=== PATIENT | female | born 1980 | race Two or more races ===

== ENCOUNTER 2024-07-30 21:57 | Emergency (ER) | payer OTHER ==
[~2024-07-30] VITALS: Ht 170.2 cm; Wt 56.7 kg
[2024-07-31 00:09] LABS: BASOPHILS % (AUTO) 0.5 % (0.0-2.0); EOSINOPHILS % (AUTO) 0.7 % (0.0-6.0); HEMATOCRIT 32 % (33-45); HEMOGLOBIN 10.8 g/dL (11.5-14.8); LYMPHOCYTES # (AUTO) 1.7 K/uL (0.8-4.8); MEAN CORPUSCULAR HEMOGLOBIN 31 PG (26.0-33.0); MEAN CORPUSCULAR HGB CONC 34 g/dl (31.0-36.0); MEAN CORPUSCULAR VOLUME 91 fL (82-100); MONOCYTES # (AUTO) 0.5 K/uL (0.1-1.30); MONOCYTES % (AUTO) 8.1 % (2.0-12.0); NEUTROPHILS # (AUTO) 3.5 K/uL (1.8-8.9); NEUTROPHILS % (AUTO) 60.7 % (43.0-81.0); PLATELET COUNT (AUTO) 189 K/uL (150-450); RED BLOOD CELL COUNT(AUTO) 3.55 MIL/uL (4.0-5.2); RED CELL DISTRIBUTION WIDTH 12.2 % (11.5-15.0); WHITE BLOOD COUNT (AUTO) 5.8 K/uL (4.3-11.0)
[2024-07-31 00:26] LABS: BILIRUBIN,TOTAL 0.2 mg/dL (0.2-1.0); CALCIUM, SERUM 8.7 mg/dL (8.5-10.1); CREATININE 0.8 mg/dL (0.6-1.3); POTASSIUM 3.7 mmol/L (3.5-5.1); TOTAL PROTEIN, SERUM 6.9 g/dL (6.4-8.2)
[2024-07-31 01:04] VITALS: BP 126/80; TEMP 98.1; O2SAT 98
== END 2024-07-31 01:05 | disposition home or self-care (01) ==
LOC: ER 22:06
DX: R07.89 Other chest pain (principal); V43.52XA Car driver injured in collision with other type car in traffic accident, initial encounter; Y93.89 Activity, other specified; Y92.488 Other paved roadways as the place of occurrence of the external cause; Y99.8 Other external cause status
CPT/HCPCS: 36415; 71045-TC; 80053-TC; 84484-TC; 85025-TC

== ENCOUNTER 2025-06-24 18:12 | Emergency (ER) | payer OTHER ==
[~2025-06-24] VITALS: Ht 170.2 cm; Wt 57.6 kg
[2025-06-24 19:07] LABS: APPEARANCE,URINE CLEAR (CLEAR); BLOOD, URINE Trace-intact Ery/uL (NEGATIVE); LEUKOCYTE ESTERASE ,URINE Negative (NEGATIVE); UGLUCOSE Negative (NEGATIVE)
[2025-06-24 19:07] LABS: PLATELET COUNT (AUTO) 267 K/uL (150-450); RED BLOOD CELL COUNT(AUTO) 4.00 MIL/uL (4.0-5.2); RED CELL DISTRIBUTION WIDTH 12.6 % (11.5-15.0); WHITE BLOOD COUNT (AUTO) 5.1 K/uL (4.3-11.0)
[2025-06-24 19:10] LABS: NITRITE, URINE NEGATIVE (NEGATIVE)
[2025-06-24 19:11] LABS: ADD URINE CULTURE NO; SQUAMOUS EPITHELIAL CELL,UR Few /HPF (None Seen)
[2025-06-24 19:12] LABS: PREGNANCY TEST URINE QUAL NEGATIVE (NEGATIVE)
[2025-06-24 19:15] LABS: CALCIUM, SERUM 9.5 mg/dL (8.5-10.1); CREATININE 0.6 mg/dL (0.6-1.3); SODIUM SERUM 136.0 mmol/L (136-145); UREA NITROGEN, BLOOD 19.0 mg/dL (7-18)
[2025-06-24] MEDS ORDERED: KETOROLAC TROMETHAMINE INJ 30 MG/ML VIAL ONE (19:29)
[2025-06-24] MEDS: KETOROLAC TROMETHAMINE 15 MG/ML VIAL IV ONE (19:32)
[2025-06-24] MEDS: IV NS 0.9% 1,000 ML BAG IV ONE (19:32)
[2025-06-24] MEDS ORDERED: KETO10TA2 PO (20:37)
[2025-06-24 21:51] VITALS: BP 132/80; TEMP 98.3; O2SAT 99
== END 2025-06-24 21:52 | disposition home or self-care (01) ==
LOC: ER 18:23
DX: N23 Unspecified renal colic (principal); R31.9 Hematuria, unspecified
CPT/HCPCS: 99285; 74176; 96374; 96361; 85025; 80048; 84703; 81001; 36415; J1885; J7030

== ENCOUNTER 2025-08-15 13:26 | Emergency (ER) | payer OTHER ==
[~2025-08-15] VITALS: Ht 170.2 cm; Wt 57.6 kg
[~2025-08-15 13:26] MED LIST: KETO10TA2 PO
[2025-08-15] MEDS: IV NS 0.9% 1,000 ML BAG IV ONE ×2 (14:00→14:25)
[2025-08-15 14:14] LABS: PLATELET COUNT (AUTO) 167 K/uL (150-450); RED BLOOD CELL COUNT(AUTO) 3.20 MIL/uL (4.0-5.2); RED CELL DISTRIBUTION WIDTH 12.7 % (11.5-15.0); WHITE BLOOD COUNT (AUTO) 4.5 K/uL (4.3-11.0)
[2025-08-15 14:16] LABS: APPEARANCE,URINE CLEAR (CLEAR); BLOOD, URINE NEGATIVE Ery/uL (NEGATIVE); LEUKOCYTE ESTERASE ,URINE NEGATIVE (NEGATIVE); NITRITE, URINE NEGATIVE (NEGATIVE); UGLUCOSE NEGATIVE (NEGATIVE)
[2025-08-15 14:20] LABS: CALCIUM, SERUM 8.4 mg/dL (8.5-10.1); CREATININE 0.7 mg/dL (0.6-1.3); SODIUM SERUM 137.0 mmol/L (136-145); UREA NITROGEN, BLOOD 14.0 mg/dL (7-18)
[2025-08-15] MEDS ORDERED: ONDANSETRON HCL/PF 4 MG/2 ML VIAL ONE (14:20)
[2025-08-15 14:21] LABS: PREGNANCY TEST URINE QUAL NEGATIVE (NEGATIVE)
[2025-08-15] MEDS ORDERED: MORPHINE SULFATE INJ 4 MG/ML DISP.SYRIN ONE (14:21)
[2025-08-15] MEDS: ONDANSETRON HCL/PF 4 MG/2 ML VIAL IVP ONE (14:25)
[2025-08-15] MEDS: MORPHINE SULFATE INJ 2 MG/ML DISP.SYRIN IV ONE (14:26)
[2025-08-15 14:27] LABS: ASPARTATE AMINOTRANSFERASE 14.0 U/L (15-37); TOTAL PROTEIN, SERUM 7.0 g/dL (6.4-8.2)
[2025-08-15] MEDS ORDERED: KETOROLAC TROMETHAMINE 15 MG/ML VIAL ONE (15:06)
[2025-08-15] MEDS: KETOROLAC TROMETHAMINE 15 MG/ML VIAL IV ONE (15:09)
[2025-08-15] MEDS ORDERED: NAPR-1164 PO (18:12)
[2025-08-15 19:21] VITALS: BP 109/71; TEMP 98.9; O2SAT 100
== END 2025-08-15 19:21 | disposition home or self-care (01) ==
LOC: ER 13:35
DX: N83.201 Unspecified ovarian cyst, right side (principal); K59.00 Constipation, unspecified; R10.20 Pelvic and perineal pain unspecified side; Z90.710 Acquired absence of both cervix and uterus; Z60.2 Problems related to living alone
CPT/HCPCS: 99285; 74176; 96374; 76856; 96361; 96375; 85025; 80048; 87086; 83690; 80076; 84703; 81003; 36415; 84702; J1885; J2405; J7030; J2270